=== PATIENT | male | born 2000 | race Caucasian/White ===

== ENCOUNTER 2022-07-08 23:40 | Emergency (ER) | payer SELFPAY ==
[2022-07-08 23:40] VITALS: O2SAT 98
[2022-07-08 23:53] VITALS: BP 147/91; PULSE 78; RESP 18; TEMP 36.8; O2SAT 99; BMI 27.6
--- NOTE | 2022-07-09 00:18 | ED_ITS ---
HPI - General Adult General Time Seen by Provider: 00:18 Date Seen: 07/09/22 Chief complaint: Abdominal Pain Stated complaint: Abdominal Pain Time Seen by Provider: 07/08/22 23:54 Source: patient Mode of arrival: ambulatory Limitations: no limitations History of Present Illness HPI narrative: 21-year-old male who presents today with upper abdominal pain. This started approximately 8 hours prior to coming to this emergency department. Pain is constant. Nausea but no vomiting. No diarrhea. Patient previously seen for this at [facility]. Reviewed those records. CT scan of the abdomen and pelvis was done which showed mild distention of the gallbladder but no wall thickening, abdominal ultrasound showed cholelithiasis without cholecystitis. Urinalysis negative, lipase 22, basic panel reassuring, hepatic function panel normal, white blood cell count 7. Patient was given GI cocktail, fentanyl, oxycodone at that visit and was discharged with Maalox and omeprazole. Presents to this emergency department because he is still having pain. Related Data Home Medications Medication Instructions Recorded Confirmed No Known Home Medications 07/08/22 07/08/22 Allergies Allergy/AdvReac Type Severity Reaction Status Date / Time No Known Drug Allergies Allergy Verified 07/08/22 23:57 [facility] Medical History (Updated 07/09/22 @ 00:24 by Zeferino Stinson MD) Cholelithiasis Surgical History (Updated 07/09/22 @ 00:05 by Bob Villareal RN) No significant past surgical history Social History Smoking Status: Never smoker Do you use any of these nicotine containing products: None Second hand tobacco smoke exposure: No How often do you have a drink containing alcohol: never How often do you have six or more drinks on one occasion: Never AUDIT-C Alcohol total score: 0 Non-prescribed substance use: denies use Exam Narrative: Exam Narrative: General: Well-developed and well-nourished, no acute distress Head: Atraumatic and normocephalic Eyes: Pupils are equal reactive, extraocular motions intact, conjunctiva clear ENT: External nose and ears are normal, posterior pharynx without erythema or exudate Neck: No midline cervical tenderness, full spontaneous range of motion the neck, trachea midline, no adenopathy Heart: Regular rate and rhythm no murmurs or thrills Lungs: Clear to auscultation bilaterally without wheezes or crackles Abdomen: Soft, epigastric tenderness, nondistended with active bowel sounds Musculoskeletal: No tenderness, deformity, or edema Neurologic: Awake, alert, and oriented x3, no gross focal neurologic deficits, cranial nerves intact as tested Psych: Mood and affect are appropriate Skin: No rashes Const: Vital Signs, click to edit/add: Vital Signs - 24 hr 07/08/22 23:53 Temperature 98.2 F Pulse Rate [Right Pulse Oximeter] 78 Respiratory Rate 18 Blood Pressure [Le ft Upper Arm] 147/91 H Pulse Oximetry 99 Oxygen Delivery Me thod Room Air Course Course Hospital Course: Patient seen and examined, prior records reviewed. Patient presents with about 8 hours of epigastric pain. Previously evaluated in outside facility for this, had imaging that showed cholelithiasis without acute cholecystitis. Patient has no right upper quadrant tenderness. Symptoms seem most consistent with gastritis. He will be given GI cocktail and Toradol IM. Given recent complete evaluation with ultrasound and CT scan as well labs within the last 6 hours, would not repeat this testing and will work on symptom management. Reevaluation(s) Reevaluation #1: Patient recheck. Patient is feeling better and stable for discharge. Time: 01:11 Vital Signs Vital signs: Initial Vital Signs Temperature 98.2 F 07/08/22 23:53 Temperature Source Temporal Artery Scan 07/08/22 23:53 Pulse Rate 78 07/08/22 23:53 Respiratory Rate 18 07/08/22 23:53 Blood Pressure 147/91 H 07/08/22 23:53 Blood Pressure Mean 109 07/08/22 23:53 Blood Pressure Position Sitting 07/08/22 23:53 Pulse Oximetry 99 07/08/22 23:53 Oxygen Delivery Method 07/08/22 23:53 Vital Signs Temperature 98.2 F 07/08/22 23:53 Pulse Rate 78 07/08/22 23:53 Respiratory Rate 18 07/08/22 23:53 Blood Pressure 147/91 H 07/08/22 23:53 Pulse Oximetry 99 07/08/22 23:53 Oxygen Delivery Method 07/08/22 23:53 Temperature 98.2 F 07/08/22 23:53 Pulse Rate 78 07/08/22 23:53 Respiratory Rate 18 07/08/22 23:53 Blood Pressure 147/91 H 07/08/22 23:53 Pulse Oximetry 99 07/08/22 23:53 Oxygen Delivery Method 07/08/22 23:53 Discharge Plan Discharge Clinical Impression: Acute epigastric pain Patient Disposition: Home, Self-Care Condition: Stable Instructions: Epigastric Pain (ED) Additional Instructions: Liquid diet for 24 hours Take medication for nausea and pain as needed Take medications prescribed at your prior emergency department visit Follow-up with your doctor early next week Activity Level: No Restrictions Discharge Diet: Full Liquid Prescriptions: No Action No Known Home Medications Stand Alone Forms: [employer] Info Instructions
[2022-07-09] MEDS: GI COCKTAIL (VISC LIDO/ANTACID) 30 ML PO (00:29)
[2022-07-09] MEDS: KETOROLAC 30 MG/ML inj IM (00:30)
[2022-07-09 00:35] VITALS: BP 141/94; PULSE 82; RESP 16; O2SAT 96
[2022-07-09 01:01] VITALS: BP 124/84; PULSE 68; RESP 16; O2SAT 96
[2022-07-09 01:22] VITALS: BP 125/74; PULSE 78; RESP 16; TEMP 36.8; O2SAT 96
[2022-07-09 01:30] VITALS: BP 125/74; PULSE 78; RESP 16; TEMP 36.8
== END 2022-07-09 01:30 | disposition home or self-care (01) ==
PROVIDERS: Emergency Provider Family Medicine
DX: R10.13 Epigastric pain (principal)
CPT/HCPCS: 94761; 96372; 99283; 99284; A9270; J1885

== ENCOUNTER 2022-10-18 18:24 | Emergency (ER) | payer SELFPAY ==
[2022-10-18 18:53] VITALS: BP 135/74; PULSE 95; RESP 16; TEMP 37.2; O2SAT 98; BMI 22.4
== END 2022-10-18 19:12 | disposition home or self-care (01) ==
PROVIDERS: Emergency Provider Family Medicine
DX: Z53.21 Procedure and treatment not carried out due to patient leaving prior to being seen by health care provider (principal)

== ENCOUNTER 2022-11-29 17:55 | Emergency (ER) | payer SELFPAY ==
[2022-11-29 17:59] VITALS: BP 127/84; PULSE 90; RESP 16; TEMP 36.3; O2SAT 100; BMI 21.9
--- NOTE | 2022-11-29 18:16 | ED.ABDPAIN ---
HPI - Abdominal Pain General Time Seen by Provider: 18:16 Date Seen: 11/29/22 Chief Complaint: Abdominal Pain Stated Complaint: Abdominal pain Time Seen by Provider: 11/29/22 17:56 Source: patient and RN notes reviewed Mode of arrival: ambulatory Limitations: no limitations History of Present Illness HPI narrative: Patient is a 22-year-old male presenting to the ER with epigastric pain that started about 430. He had epigastric pain radiating out around both sides. He ate breakfast this morning, then went and worked out later. He had not eaten lunch yet, pain started before he could eat lunch. He came to the ER instead. He states he is scheduled to have an EGD in December for further evaluation of spells like this that he has been having. He reports he has been here before for this. He has had no acute nausea or vomiting with this current spell. No diarrhea but states he has had diarrhea in the past, feels like that has gotten better. No fevers or chills. Just before 6:30 p.m., he states the pain really started to go away while he was here. He is not having the pain any longer. When it was present, felt like he had to burp or pass gas to relieve the pain and could not. He does wonder if this could be underlying reflux symptoms but cannot really give me history of regurgitation or heartburn. He was seen here on 07/09/2022 an outside records from [place] where he had been seen earlier at that time had a normal CT, ultrasound showing cholelithiasis without cholecystitis. Labs were reportedly normal in the record. Patient was discharged to home. His abdominal exam was nontender at that time in the notes. Patient did tell nursing staff that he took a pre workout energy drink. They did do an EKG on arrival. Related Data Home Medications Medication Instructions Recorded Confirmed No Known Home Medications 07/08/22 11/29/22 Allergies Allergy/AdvReac Type Severity Reaction Status Date / Time No Known Drug Allergies Allergy Verified 11/29/22 18:08 Review of Systems Status of ROS Reports: 6 or more systems reviewed and unremarkable except as noted in History and below [facility] Medical History (Updated 11/29/22 @ 23:19 by Karina Rodriguez MD) Cholelithiasis ?K80.20 - Calculus of gallbladder without cholecystitis without obstruction (ICD-10) Surgical History (Updated 07/09/22 @ 00:05 by Bob Villareal RN) No significant past surgical history Social History Smoking Status: Never smoker Do you use any of these nicotine containing products: None Second hand tobacco smoke exposure: No How often do you have a drink containing alcohol: never How often do you have six or more drinks on one occasion: Never AUDIT-C Alcohol total score: 0 Non-prescribed substance use: denies use Exam Const: Vital Signs, click to edit/add: Vital Signs - 24 hr 11/29/22 17:59 11/29/22 18:21 11/29/22 20:00 Temperature 97.3 F L 98.6 F Pulse Rate [Right] 90 87 Respiratory Rate 16 18 Blood Pressure [Ri ght Upper Arm] 127/84 139/83 Pulse Oximetry 100 99 97 Oxygen Delivery Me thod Room Air Room Air 11/29/22 22:35 Temperature Pulse Rate [Right] 77 Respiratory Rate 16 Blood Pressure [Ri ght Upper Arm] 127/81 Pulse Oximetry 97 Oxygen Delivery Me thod Room Air Documenting provider has reviewed patient's vital signs: yes Common normals: no apparent distress, average body habitus, oriented x3, no limitations, healthy appearing and alert General appearance: cooperative, comfortable, well kempt and well developed HENMT: Common normals: normocephalic, head/scalp atraumatic and hearing grossly normal bilaterally Head and scalp: normocephalic and atraumatic Face and sinus: normal facial exam Eye: Common normals: PERRL, EOMs intact bilaterally, conjunctivae normal and no scleral icterus Conjunctiva: conjunctiva(e) normal Pupil: PERRL Neck & C-Spine: Common normals: full ROM, no lymphadenopathy and supple Resp: Common normals: normal respiratory effort, no retractions, no use of accessory muscles and clear to auscultation bilaterally Effort & inspection: able to speak in complete sentences Auscultation: clear to auscultation bilaterally Cardio: Common normals: regular rate, regular rhythm, S1 normal heart sound, S2 normal heart sound, no gallops, no clicks and no murmurs Rate: regular rate Rhythm: regular rhythm Heart sounds: S1 normal and S2 normal GI: Common normals: Normal to inspection, nondistended, normoactive bowel sounds present, soft to palpation, non-tender, no hepatosplenomegaly and no masses Palpation: soft and no hepatosplenomegaly Neuro: Common normals: oriented x3, moves all extremities and gait normal Sensorium/orientation: alert Psych: Appearance: well kempt Course Course Hospital Course: Patient is asymptomatic at this time. Given his history, do think we should get labs. This could be biliary colic but given the fact that he is asymptomatic at this time, would not repeat ultrasound unless there are significant abnormalities with his labs. Given that there is an EGD that is in the works, it sounds to me that there may be thoughts that this is not gallbladder for him. Will see where his labs lie and how he does clinically here. Reevaluation(s) Time of Reevaluation #1: 19:33 Reevaluation #1: Reviewed labs with patient. His AST is mildly up. He does not drink any alcohol. The only ultrasound of his gallbladder was the in June that he can remember. His pain is coming back but dull. It is epigastric. Lipase was normal, other labs are reassuring. At this point I a believe we are going to proceed with repeat gallbladder ultrasound. Will give him a Vicodin and see if this helps is pain while we await the ultrasound. He states he believes he maybe has omeprazole and possibly some Zofran at home but has not taken any. He at this time has very mild epigastric tenderness without rebound or guarding. Time of Reevaluation #2: 21:57 Reevaluation #2: Patient was up to the bathroom, the Vicodin has not helped his pain at all. We are going to try some Maalox, see if we can find some viscous lidocaine or equivalent to see if that helps. His ultrasound does have gallstones, AST is mildly up but if the GI cocktail helps, I agree that this is probably likely more gastritis in nature. I still would potentially have him see General surgery for a consult. Time of Reevaluation #3: 23:14 Reevaluation #3: Patient states his back is now hurting from the bed. He is feeling better, did improve some after the Maalox. Do not actually have a GI cocktail. Reviewed with him that I do think he should consult with General surgery to have them weigh in on the thoughts about his gallbladder. I reviewed with him that I do think he needs EGD in part of this evaluation as well prior to taking his gallbladder out if that is even indicated. I would recommend that he take omeprazole or what ever stomach acid k 12 principal that he had been prescribed and is not using. Vital Signs Vital signs: Initial Vital Signs Temperature 97.3 F L 11/29/22 17:59 Temperature Source Temporal Artery Scan 11/29/22 17:59 Pulse Rate 90 11/29/22 17:59 Respiratory Rate 16 11/29/22 17:59 Blood Pressure 127/84 11/29/22 17:59 Blood Pressure Mean 98 11/29/22 17:59 Blood Pressure Position Supine 11/29/22 17:59 Pulse Oximetry 100 11/29/22 17:59 Oxygen Delivery Method Room Air 11/29/22 17:59 Vital Signs Temperature 97.3 F L 11/29/22 17:59 Pulse Rate 90 11/29/22 17:59 Respiratory Rate 16 11/29/22 17:59 Blood Pressure 127/84 11/29/22 17:59 Pulse Oximetry 100 11/29/22 17:59 Oxygen Delivery Method Room Air 11/29/22 17:59 Temperature 98.6 F 11/29/22 20:00 Pulse Rate 77 11/29/22 22:35 Respiratory Rate 16 11/29/22 22:35 Blood Pressure 127/81 11/29/22 22:35 Pulse Oximetry 97 11/29/22 22:35 Oxygen Delivery Method Room Air 11/29/22 22:35 MDM - Abdominal Pain Lab Data Attestation: I reviewed the patient's lab results. Labs: Lab Results 11/29/22 Range/Units 18:33 WBC 11.44 H (4.50-11.00) K/uL RBC 5.17 (4.30-5.90) m/uL Hgb 15.2 (13.5-17.5) gm/dL Hct 45.8 (37.0-53.0) % MCV 89 (80-100) fL MCH 29 (26-34) pg MCHC 33 (32-36) gm/dL RDW Coeff of Yashira 12.9 (11.5-15.5) % Plt Count 224 (140-440) K/uL Neut % (Auto) 80.6 H (42.0-72.0) % Lymph % (Auto) 12.9 L (20-44) % Anderson % (Auto) 5.2 (0.0-11.0) % Eos % (Auto) 0.7 (0.0-7.0) % Baso % (Auto) 0.4 (0.0-3.0) % Neut # (Auto) 9.20 H (1.7-7.0) K/uL Lymph # (Auto) 1.50 (0.90-2.90) K/uL Anderson # (Auto) 0.60 (0.00-0.90) K/UL Eos # (Auto) 0.10 (0.00-0.50) K/uL Baso # (Auto) 0.00 (0.00-0.30) K/uL Abs Immat Gran (auto) 0.00 (0.00-0.30) K/uL Imm/Tot Granulo (auto) 0.2 % Sodium 138 (135-149) mmol/L Potassium 3.8 (3.6-5.1) mmol/L Chloride 103 (96-114) mmol/L Carbon Dioxide 28 (20-32) mmol/L BUN 19 (5-24) mg/dL Creatinine 0.7 (0.5-1.5) mg/dL Estimated Creat Clear 151.20 Estimated GFR 135 ml/min Glucose 94 (60-115) mg/dL Lactate 0.7 (0.5-1.9) mmol/L Calcium 9.5 (8.4-10.6) mg/dL Total Bilirubin 0.4 (0.1-1.5) mg/dL AST 86 H (12-35) U/L ALT 46 (4-50) U/L Alkaline Phosphatase 70 (40-150) U/L C-Reactive Protein < 0.5 L (0.5-1.0) mg/dL Total Protein 8.1 (6.0-8.3) g/dL Albumin 4.7 (3.3-5.0) g/dL Lipase 67 (23-300) U/L Imaging Data US - abdomen: Attestation: I have reviewed the pertinent imaging results. Radiologist's impression: Patient: KEEGAN BARBER Facility:?[facility] Patient ID:?[id number] Site Patient ID:?[id number]. Site :?[id number] Study:?US Abdomen/Pelvis -11/29/2022 8:41:09 PM Ordering Physician:Jennifer Collins Final Report: INDICATION: Epigastric pain. TECHNIQUE: Limited abdominal ultrasound of the right upper abdomen utilizing grayscale and color Doppler sonography. COMPARISON: None available. FINDINGS: Pancreas: Visualized portions appear unremarkable. Liver: Normal contour and echogenicity. No suspicious lesion. No intrahepatic biliary dilatation. Gallbladder: Contains multiple small gallstones and echogenic sludge. Gallbladder wall thickness measures 3 mm. No pericholecystic fluid. Negative sonographic Warren sign. Common bile duct: 5 mm diameter. Right kidney: Measures 10.8 cm length. No hydronephrosis. Other: Negative. IMPRESSION: Cholelithiasis without definitive sonographic evidence of acute cholecystitis. Dictated by Ricardo Mcintyre MD @ 11/29/2022 9:42:10 PM Dictated by: Ricardo Mcintyre MD @ 11/29/2022 21:42:15 (Electronic Signature) ECG Data Attestation: I personally reviewed and interpreted this ECG as follows: (Sinus rhythm, 93 beats per minute.) ECG interpretation date: 11/29/22 ECG interpretation time: 18:44 Discharge Plan Discharge Clinical Impression: Acute epigastric pain Patient Disposition: Home, Self-Care Condition: Stable Instructions: Gallstones (ED), Epigastric Pain (ED) Additional Instructions: You do have evidence of gallstones on ultrasound but it remains unclear if this is actually what is causing her symptoms. The pain medication did not help at all and typically would with people suffering from pain from gallstones. I do agree that you should complete an EGD, contact the clinic and see if you can get on a wait list for cancellation possibly. I would also have your primary care provider refer you to see General surgery so that they can assess whether or not there is concerned that her gallbladder might be causing some of these symptoms. In the meantime, try to avoid fatty foods, stay on a bland diet. I do recommend that you follow up in clinic this week with your primary care provider. If they have provided you medication in the past that they recommended you take, you really should be following through with this. Prescriptions: No Action No Known Home Medications Follow Up/Referrals: Provider,Not a Local [Primary Care Provider] - Stand Alone Forms: [employer] Info Instructions
[2022-11-29 18:21] VITALS: O2SAT 99
[2022-11-29 18:40] LABS: Basophils Percent Auto 0.4 % (0.0-3.0); Eosinophils Percent Auto 0.7 % (0.0-7.0); Hematocrit 45.8 % (37.0-53.0); Hemoglobin* 15.2 gm/dL (13.5-17.5); Immature Granulocytes Pct Auto 0.2 %; Lactate* 0.7 mmol/L (0.5-1.9); Lymphocytes Percent Auto 12.9 % (20-44); Mean Corpuscular HGB Conc 33 gm/dL (32-36); Mean Corpuscular Hemoglobin 29 pg (26-34); Mean Corpuscular Volume 89 fL (80-100); Monocytes Percent Auto 5.2 % (0.0-11.0); Neutrophils Percent Auto 80.6 % (42.0-72.0); Platelet Count* 224 K/uL (140-440); RDW Coefficient of Variation % 12.9 % (11.5-15.5); Red Blood Count 5.17 m/uL (4.30-5.90); White Blood Count* 11.44 K/uL (4.50-11.00)
[2022-11-29 18:42] LABS: Slide Review Reflex No
[2022-11-29 19:04] LABS: Albumin* 4.7 g/dL (3.3-5.0); Chloride* 103 mmol/L (96-114)
[2022-11-29 19:05] LABS: Potassium* 3.8 mmol/L (3.6-5.1); Sodium* 138 mmol/L (135-149)
[2022-11-29 19:06] LABS: Lipase* 67 U/L (23-300)
[2022-11-29 19:07] LABS: Alkaline Phosphatase* 70 U/L (40-150); Aspartate Amino Transferase* 86 U/L (12-35); Bilirubin Total* 0.4 mg/dL (0.1-1.5); Carbon Dioxide* 28 mmol/L (20-32); Creatinine* 0.7 mg/dL (0.5-1.5); Estimated Glomerular Filt Rate 135 ml/min; Total Protein* 8.1 g/dL (6.0-8.3)
[2022-11-29 19:08] LABS: Alanine Aminotransferase* 46 U/L (4-50); Blood Urea Nitrogen* 19 mg/dL (5-24); Calcium* 9.5 mg/dL (8.4-10.6); Glucose* 94 mg/dL (60-115)
[2022-11-29 19:12] LABS: C Reactive Protein* < 0.5 mg/dL (0.5-1.0)
--- NOTE | 2022-11-29 19:34 | CRLHL7_ITS ---
For Patients: As a result of the Century Cures Act, medical imaging exams and procedure reports are released immediately into your electronic medical record. You may view this report before your referring provider. If you have questions, please contact your health care provider. INDICATION: Epigastric pain. TECHNIQUE: Limited abdominal ultrasound of the right upper abdomen utilizing grayscale and color Doppler sonography. COMPARISON: None available. FINDINGS: Pancreas: Visualized portions appear unremarkable. Liver: Normal contour and echogenicity. No suspicious lesion. No intrahepatic biliary dilatation. Gallbladder: Contains multiple small gallstones and echogenic sludge. Gallbladder wall thickness measures 3 mm. No pericholecystic fluid. Negative sonographic Warren sign. Common bile duct: 5 mm diameter. Right kidney: Measures 10.8 cm length. No hydronephrosis. Other: Negative. IMPRESSION: Cholelithiasis without definitive sonographic evidence of acute cholecystitis. Dictated by Ricardo Mcintyre MD @ 11/29/2022 9:42:10 PM Dictated by: Ricardo Mcintyre MD @ 11/29/2022 21:42:15 (Electronically Signed)
[2022-11-29 20:00] VITALS: BP 139/83; PULSE 87; RESP 18; TEMP 37; O2SAT 97
[2022-11-29] MEDS: OXYCODONE 5 MG TABLET PO (21:08)
[2022-11-29] MEDS: MAG HYDROX/ALUMINUM HYD/SIMETH 30 ML ORAL.SUSP 15 ML PO (22:08)
[2022-11-29 22:35] VITALS: BP 127/81; PULSE 77; RESP 16; O2SAT 97
== END 2022-11-29 23:34 | disposition home or self-care (01) ==
PROVIDERS: Emergency Provider Family Medicine
DX: R10.13 Epigastric pain (principal)
CPT/HCPCS: 36415; 76705; 80053; 83605; 83690; 85025; 86140; 93005; 94761; 99283; 99284; 99285; A9270

== ENCOUNTER 2023-03-30 01:39 | Emergency (ER) | payer OTHER, SELFPAY ==
[2023-03-30 01:47] VITALS: BP 141/89; PULSE 85; RESP 20; TEMP 37.1; O2SAT 99
--- NOTE | 2023-03-30 02:10 | ED.GENADULT ---
HPI - General Adult General Chief complaint: Abdominal Pain Stated complaint: Abdominal Pain/Numb L arm Time Seen by Provider: 03/30/23 01:44 Source: patient and family History of Present Illness HPI narrative: 22-year-old male presents the emergency department for evaluation of epigastric abdominal pain this started about 90 minutes ago. Gradual onset, rates the pain is 8/10. No vomiting. Did have bout of diarrhea, more accurately described as loose stools shortly after the pain started. The bowel movement did not improve his symptoms. It was nonbloody and otherwise without distinguishing features. Reports normal appetite. Last ate about 3 hours ago, eggs and potatoes. Denies any fried or heavy foods. No recent alcohol intake. No trauma. No nausea or vomiting, no fever. Has had multiple prior emergency department visits for epigastric area abdominal pain. Has had ultrasound both at our facility and it sounds like at [place] as well. He has had CT scan at [place] as well. Labs have been reassuring. He was recommended to have an outpatient endoscopy a couple of months ago, he reports that he has not had this done. He has not followed up with his primary care provider since his last ED visit this summer for similar complaints. He reports that he had been doing much better since he was taking his omeprazole daily which he continues to do. He does report a little bit of numbness in the left shoulder, no chest pain or shortness of breath. No history of cardiac issues. He did not try any interventions prior to coming to the ED tonight. Past medical history benign per his report, only home medication is omeprazole 40 mg once daily. No other ongoing medical problems, no surgeries. No allergies, no pertinent travel. Other than the abdominal symptoms as above, ROS is otherwise benign times 12 systems. Related Data Home Medications Medication Instructions Recorded Confirmed omeprazole 40 mg capsule,delayed 40 mg PO DAILY 03/30/23 03/30/23 release Allergies Allergy/AdvReac Type Severity Reaction Status Date / Time No Known Drug Allergies Allergy Verified 11/29/22 18:08 [facility] Medical History Cholelithiasis ?K80.20 - Calculus of gallbladder without cholecystitis without obstruction (ICD-10) Surgical History No significant past surgical history Social History Smoking Status: Never smoker Do you use any of these nicotine containing products: None Second hand tobacco smoke exposure: No How often do you have a drink containing alcohol: never How often do you have six or more drinks on one occasion: Never AUDIT-C Alcohol total score: 0 Non-prescribed substance use: denies use service: No Exam Const: Vital Signs, click to edit/add: Vital Signs - 24 hr 03/30/23 01:47 03/30/23 03:51 Temperature 98.8 F Pulse Rate [Left P ulse Oximeter] 85 88 Respiratory Rate 20 16 Blood Pressure [Ri ght Upper Arm] 141/89 H 135/84 Pulse Oximetry 99 98 Oxygen Delivery Me thod Room Air Room Air Documenting provider has reviewed patient's vital signs: yes Common normals: no apparent distress General appearance: cooperative, comfortable and well kempt Other: Nontoxic appearing HENMT: Common normals: normocephalic Head and scalp: normal to inspection and normocephalic Face and sinus: normal facial exam Mouth: oral and palatal mucosa normal Throat: posterior oropharynx normal Eye: Common normals: conjunctivae normal General eye: normal appearance of both eyes Conjunctiva: conjunctiva(e) normal Neck & C-Spine: Common normals: full ROM and no lymphadenopathy Resp: Common normals: normal respiratory effort, no use of accessory muscles and clear to auscultation bilaterally Effort & inspection: able to speak in complete sentences Auscultation: clear to auscultation bilaterally Cardio: Common normals: regular rate, regular rhythm, S1 normal heart sound, S2 normal heart sound and no murmurs Rate: regular rate Rhythm: regular rhythm Heart sounds: S1 normal and S2 normal GI: Common normals: Normal to inspection, nondistended, normoactive bowel sounds present, soft to palpation, no hepatosplenomegaly and no masses Palpation: soft and no hepatosplenomegaly Other: Minimally tender to epigastrium only. Certainly no rebound tenderness or guarding. No mass : Common normals: no CVA tenderness Bladder/kidney exam: no CVA tenderness Back & Pelvis: Common normals: no CVA tenderness Extremity: Common normals: normal to inspection, full ROM, normal capillary refill and no pedal edema Neuro: Speech: speech normal Psych: Appearance: well kempt Attitude: engaged Thought content: normal thought content Insight: fair Judgement: fair Skin: Common normals: no rashes or lesions noted General skin exam: no rashes or lesions noted Course Course ED Course: Mild epigastric tenderness with no red flag features. Benign exam. Recommended conservative management and symptomatic control with Maalox, Tylenol and Carafate. Offered blood work but states that based on previous history and exam this is not likely to be beneficial. Patient states that he would like blood work done. This is ordered. I also recommended an EKG. Re-evaluate after blood work is back. Imaging only if blood work is significantly abnormal. Reevaluation(s) Time of Reevaluation #1: 04:05 Reevaluation #1: Patient reporting improvement of symptoms after Tylenol and Maalox. Normal labs reviewed with him. Discussed likely gastritis versus gastroenteritis and conservative management as well as conservative symptom controlling medications such as Tylenol, NSAIDs, Maalox and other potentially at home treatments. Reviewed alarm symptoms that would warrant ED presentation. Discussed primary care follow-up if symptoms persist, discussed reduction of carbonated beverages, energy drinks and other similar products to reduce the chance of flares again. I questioned if he has been tested for H pylori and he assures me that he has. I recommend endoscopy if he continues to have symptoms which would need to be arranged by his primary care provider unless there are any the alarm symptoms as described above. All questions answered, he verbalizes understanding and agreement. Vital Signs Vital signs: Initial Vital Signs Temperature 98.8 F 03/30/23 01:47 Temperature Source Temporal Artery Scan 03/30/23 01:47 Pulse Rate 85 03/30/23 01:47 Pulse Rhythm Regular 03/30/23 01:47 Respiratory Rate 20 03/30/23 01:47 Blood Pressure 141/89 H 03/30/23 01:47 Blood Pressure Mean 106 H 03/30/23 01:47 Blood Pressure Position Sitting 03/30/23 01:47 Pulse Oximetry 99 03/30/23 01:47 Oxygen Delivery Method Room Air 03/30/23 01:47 Vital Signs Temperature 98.8 F 03/30/23 01:47 Pulse Rate 85 03/30/23 01:47 Respiratory Rate 20 03/30/23 01:47 Blood Pressure 141/89 H 03/30/23 01:47 Pulse Oximetry 99 03/30/23 01:47 Oxygen Delivery Method Room Air 03/30/23 01:47 Temperature 98.8 F 03/30/23 01:47 Pulse Rate 88 03/30/23 03:51 Respiratory Rate 16 03/30/23 03:51 Blood Pressure 135/84 03/30/23 03:51 Pulse Oximetry 98 03/30/23 03:51 Oxygen Delivery Method Room Air 03/30/23 03:51 Medications Administered Medications: Generic Name Dose Route Start Last Admin Trade Name Neville PRN Reason Stop Dose Admin Acetaminophen 1,000 mg 03/30/23 02:05 03/30/23 02:19 Acetaminophen 500 Mg Tablet PO 03/30/23 02:06 1,000 mg ONCE ONE Administration Lidocaine/Aluminum/Magnesium/Simeth 15 ml 03/30/23 02:05 03/30/23 02:19 Mag Hydrox/Aluminum Hyd/Simeth 30 Ml Oral.Susp PO 03/30/23 02:06 15 ml ONCE ONE Administration Sucralfate 1 gm 03/30/23 02:06 03/30/23 02:45 Sucralfate 1 Gm Tablet PO 03/30/23 02:07 1 gm ONCE ONE Administration Medical Decision Making Lab Data Lab results reviewed: Yes I reviewed the patient's lab results Lab results narrative: All normal, as expected Labs: Lab Results 03/30/23 03/30/23 Range/Units 02:15 03:40 WBC 7.31 (4.50-11.00) K/uL RBC 4.75 (4.30-5.90) m/uL Hgb 14.2 (13.5-17.5) gm/dL Hct 41.8 (37.0-53.0) % MCV 88 (80-100) fL MCH 30 (26-34) pg MCHC 34 (32-36) gm/dL RDW Coeff of Yashira 12.0 (11.5-15.5) % Plt Count 213 (140-440) K/uL Neut % (Auto) 52.3 (42.0-72.0) % Lymph % (Auto) 38.4 (20-44) % [place] % (Auto) 6.3 (0.0-11.0) % Eos % (Auto) 2.5 (0.0-7.0) % Baso % (Auto) 0.4 (0.0-3.0) % Neut # (Auto) 3.82 (1.7-7.0) K/uL Lymph # (Auto) 2.81 (0.90-2.90) K/uL [place] # (Auto) 0.50 (0.00-0.90) K/UL Eos # (Auto) 0.18 (0.00-0.50) K/uL Baso # (Auto) 0.03 (0.00-0.30) K/uL Abs Immat Gran (auto) 0.01 (0.00-0.30) K/uL Imm/Tot Granulo (auto) 0.1 % Sodium 138 (135-149) mmol/L Potassium 3.6 (3.6-5.1) mmol/L Chloride 102 (96-114) mmol/L Carbon Dioxide 25 (20-32) mmol/L Anion Gap 11 (7-15) mEq/L BUN 17 (5-24) mg/dL Creatinine 0.7 (0.5-1.5) mg/dL Estimated GFR 135 ml/min Glucose 115 (60-115) mg/dL Calcium 9.5 (8.4-10.6) mg/dL Total Bilirubin 0.3 (0.1-1.5) mg/dL AST 68 H (12-35) U/L ALT 41 (4-50) U/L Alkaline Phosphatase 69 (40-150) U/L C-Reactive Protein 0.5 (0.5-1.0) mg/dL Total Protein 8.0 (6.0-8.3) g/dL Albumin 4.7 (3.3-5.0) g/dL Lipase 95 (23-300) U/L Urine Color Yellow (Yellow) Urine Appearance Clear (Clear) Urine pH 7.0 (5.0-8.5) Ur Specific Simpson 1.010 (1.000-1.030) Urine Protein Negative (Negative) Urine Glucose (UA) Negative (Negative) Urine Ketones Negative (Negative) Urine Blood Negative (Negative) Urine Nitrite Negative (Negative) Urine Bilirubin Negative (Negative) Urine Urobilinogen 1.0 (0.2-1.0) Ur Leukocyte Esterase Negative (Negative) ECG Data Attestation: I personally reviewed and interpreted this ECG as follows: Prior ECG tracings: available for review Interpretation: Comparison from the summer is unchanged. Normal sinus rhythm rate of 76 with normal intervals. Normal axis. No significant ST or T-wave abnormalities. Normal EKG. Discharge Plan Discharge Clinical Impression: Gastritis Patient Disposition: Home w/ Parent or Adult Condition: Improved Instructions: Gastritis (DC), Diet for Stomach Ulcers and Gastritis (ED) Additional Instructions: As we discussed, your labs look normal today. There are no signs of gallbladder obstruction, infection, inflammation, heart issues or pancreatitis. This is all great news. I am glad that the Tylenol and Maalox were helpful for your pain. Feel free to try these again at home in the future. As we discussed, proper dosing of Tylenol as 1000 mg every 6 hours and or ibuprofen 600 mg every 6 hours as needed for discomfort. Do not be afraid to take a proper adult dose. There could be a connection between carbonated beverages, energy drinks or other similar products and your stomach discomfort. As we discussed, if you continue to have stomach pain you may consider discontinuing those products. I would recommend that you make a follow-up appointment with her primary care provider if you continue to have these symptoms. Remember that you should come to the emergency room for these issues if you are having persistent vomiting of blood, persistent blood in your stools, severe pain for more than several hours that is not relieved by Tylenol or ibuprofen, severe weakness that is so profound that you cannot take care of yourself. Otherwise, it is reasonable to try [id number] treatments 1st and see how things progress. You may return to work and or school as normal today with no restrictions. Continue taking your omeprazole daily. Activity Level: No Restrictions Discharge Diet: Regular Prescriptions: No Action omeprazole 40 mg capsule,delayed release(DR/EC) 40 mg PO DAILY Follow Up/Referrals: Provider,Not a Local [Primary Care Provider] - Stand Alone Forms: Job1001 Info Instructions
[2023-03-30] MEDS: ACETAMINOPHEN 500 MG TABLET 1000 MG PO (02:19)
[2023-03-30] MEDS: MAG HYDROX/ALUMINUM HYD/SIMETH 30 ML ORAL.SUSP 15 ML PO (02:19)
[2023-03-30 02:22] LABS: Basophils Absolute Auto 0.03 K/uL (0.00-0.30); Basophils Percent Auto 0.4 % (0.0-3.0); Eosinophils Absolute Auto 0.18 K/uL (0.00-0.50); Eosinophils Percent Auto 2.5 % (0.0-7.0); Hematocrit 41.8 % (37.0-53.0); Hemoglobin* 14.2 gm/dL (13.5-17.5); Immature Granulocytes Abs Auto 0.01 K/uL (0.00-0.30); Immature Granulocytes Pct Auto 0.1 %; Lymphocytes Absolute Auto 2.81 K/uL (0.90-2.90); Lymphocytes Percent Auto 38.4 % (20-44); Mean Corpuscular HGB Conc 34 gm/dL (32-36); Mean Corpuscular Hemoglobin 30 pg (26-34); Mean Corpuscular Volume 88 fL (80-100); Monocytes Percent Auto 6.3 % (0.0-11.0); Neutrophils Absolute Auto 3.82 K/uL (1.7-7.0); Neutrophils Percent Auto 52.3 % (42.0-72.0); Platelet Count* 213 K/uL (140-440); Red Blood Count 4.75 m/uL (4.30-5.90); Slide Review Reflex No; White Blood Count* 7.31 K/uL (4.50-11.00)
[2023-03-30 02:37] LABS: Albumin* 4.7 g/dL (3.3-5.0); Chloride* 102 mmol/L (96-114); Sodium* 138 mmol/L (135-149)
[2023-03-30 02:38] LABS: Potassium* 3.6 mmol/L (3.6-5.1)
[2023-03-30 02:39] LABS: Creatinine* 0.7 mg/dL (0.5-1.5); Estimated Glomerular Filt Rate 135 ml/min
[2023-03-30 02:40] LABS: Alkaline Phosphatase* 69 U/L (40-150); Anion Gap 11 mEq/L (7-15); Aspartate Amino Transferase* 68 U/L (12-35); Bilirubin Total* 0.3 mg/dL (0.1-1.5); Blood Urea Nitrogen* 17 mg/dL (5-24); Carbon Dioxide* 25 mmol/L (20-32); Lipase* 95 U/L (23-300)
[2023-03-30 02:41] LABS: Alanine Aminotransferase* 41 U/L (4-50); Calcium* 9.5 mg/dL (8.4-10.6); Glucose* 115 mg/dL (60-115)
[2023-03-30 02:43] LABS: C Reactive Protein* 0.5 mg/dL (0.5-1.0)
[2023-03-30] MEDS: SUCRALFATE 1 GM TABLET PO (02:45)
[2023-03-30 03:49] LABS: Appearance Urine Clear (Clear); Bilirubin Urine Negative (Negative); Blood Urine Negative (Negative); Color Urine Yellow (Yellow); Glucose Urine Negative (Negative); Ketones Urine Negative (Negative); Leukocyte Esterase Urine Negative (Negative); Nitrite Urine Negative (Negative); Protein Urine Negative (Negative)
[2023-03-30 03:51] VITALS: BP 135/84; PULSE 88; RESP 16; O2SAT 98
== END 2023-03-30 04:09 | disposition home or self-care (01) ==
PROVIDERS: Emergency Provider Family Medicine
DX: K29.70 Gastritis, unspecified, without bleeding (principal)
CPT/HCPCS: 36415; 80053; 81003; 83690; 85025; 86140; 93005; 99284; A9270